=== PATIENT | female | born 1945 | race Caucasian/White ===

== ENCOUNTER 2017-11-15 21:54 | Emergency (ER) | payer MEDICARE, BC ==
[2017-11-15] MEDS ORDERED: Sodium Chloride 0.9% 1,000 ML IV SCH (22:15)
[2017-11-15] MEDS ORDERED: Metoclopramide 10 MG/2 ML SDV IVPUSH ONE (22:16)
--- NOTE | 2017-11-15 22:21 | EDM.PDOC ---
ED HPI GENERAL MEDICAL PROBLEM - General Chief Complaint: Lower Extremity Injury/Pain Stated Complaint: BACK AND LEG PAIN RECENT SURG Time Seen by Provider: 11/15/17 22:15 Source of Information: Reports: Patient History Limitations: Reports: No Limitations - History of Present Illness INITIAL COMMENTS - FREE TEXT/NARRATIVE: 72-year-old female presents to the ED with severe right lower extremity pain constant burning sharp and lancinating suggestive of neuropathic pain. Of note she is 8 days post repeat lumbar spine surgery. From what I can ascertain from her history she has fusion procedure carried out as well as sponge artificial disc placement. This would be in her third lumbar spine surgery. She was doing well up until noon today when the pain came on suddenly and has gradually exacerbated as the day has gone on. Up until this time she was walking with the aid of a walker and doing quite well. No falls or injuries. Her back itself does not seem to hurt. States is the worst pain she is ever experienced. She was having pain in both lower extremities but prior to the surgery and improved after the surgery. Onset: Today Onset Date: 11/15/17 Onset Time: 18:00 Duration: Hour(s): Location: Reports: Lower Extremity, Right Quality: Reports: Ache (From posterior hip buttock area all the way down to her foot i.e. in L5 nerve root distribution.), Burning, Stabbing, Other Severity: Severe (Likely has radiculopathy pain.) Improves with: Reports: None ( 10 out of 10.) Worsens with: Reports: None Context: Reports: Other (8 days postop L-spine surgery with artificial disks placement and from the sounds of things fusion of the lumbar spine.). 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: Reports: Other (see below) (She's been taking 2 tablets of hydrocodone 5/3/25 milligrams every 4 hours since this time of surgery.) Right Leg Pain Score (Numeric/FACES): 10 - Related Data Allergies Allergy/AdvReac Type Severity Reaction Status Date / Time aspirin Allergy Other Verified 11/15/17 22:12 chocolate flavor Allergy Other Verified 11/15/17 22:12 nadolol Allergy Shortness Verified 11/15/17 22:12 of Breath simvastatin Allergy Muscle Verified 11/15/17 22:12 Aches Past Medical History Cardiovascular History: Reports: Hypertension Musculoskeletal History: Reports: Back Pain, Chronic (Has had 3 back surgeries due to radiculopathy and spinal stenosis), Osteoarthritis (. involving both knees she's had both knees replaced.) Social & Family History - Living Situation & Occupation Living situation: Reports: Occupation: Unemployed Review of Systems - Review of Systems Review Of Systems: See Below Constitutional: Denies: Fever, Weakness, Other Eyes: Reports: No Symptoms Ears: Reports: No Symptoms Nose: Reports: No Symptoms Mouth/Throat: Reports: No Symptoms Respiratory: Reports: No Symptoms Cardiovascular: Reports: No Symptoms GI/Abdominal: Reports: No Symptoms Genitourinary: Reports: No Symptoms Musculoskeletal: Reports: Back Pain (Chronic back pain. Postop 8 days of her third lumbar spine surgery. Apparently had spinal fusion as well as placement of sponge disks are artificial disc.) Skin: Reports: No Symptoms Neurological: Reports: Other (Early expressing severe painful right buttock to her right foot in the distribution of the L5 nerve root. This started suddenly at noon today suggesting acute nerve root irritation or compression.) Psychiatric: Reports: No Symptoms ED EXAM, GENERAL - Physical Exam Exam: See Below Exam Limited By: No Limitations General Appearance: Alert, Moderate Distress (She is in a lot of pain.) Eye Exam: Bilateral Eye: Normal Inspection Respiratory/Chest: No Respiratory Distress, Lungs Clear, Normal Breath Sounds, No Accessory Muscle Use, Respiratory Distress (Tachypnea Due to hyperventilating. 22/m with sats of 90% on room air.) Cardiovascular: Normal Peripheral Pulses, Regular Rate, Rhythm, No Gallop, No Murmur, No Rub Peripheral Pulses: 2+: Posterior Tibial (L), Posterior Tibial (R), Dorsalis Pedis (L), Dorsalis Pedis (R) GI/Abdominal: Normal Bowel Sounds, Non-Tender, No Organomegaly, No Abnormal Bruit. No: No Mass, Guarding, Rigid, Rebound, Tender Back Exam: Other (On palpation she does have pain around her surgical site. Severe pain on palpation along the posterior iliac crest on the right side and along the distribution of the SI joint.) Extremities: Normal Inspection, Normal Range of Motion, Other (she she has well- healed scars over both knees from total knee replacements. Is able to straight leg raiser and internal next regular rotate both hips. Straight leg raising was mildly positive at 60 on the right side.) Neurological: Alert, Oriented, CN II-XII Intact, Normal Cognition, Normal Gait, Normal Reflexes, No Motor/Sensory Deficits Psychiatric: Anxious, Other Skin Exam: Warm, Dry, Intact, Normal Color, No Rash Course - Vital Signs Last Recorded V/S: Last Vital Signs Temp 36.6 C 11/15/17 22:03 Pulse 95 11/15/17 22:03 Resp 22 H 11/15/17 22:03 BP 191/112 H 11/15/17 22:03 Pulse Ox 98 11/15/17 22:03 - Orders/Labs/Meds Orders: Active Orders 24 hr Category Date Time Status Lumbar Spine wo Cont [CT] Stat Exams 11/15/17 22:16 Taken VL Duplex Lwr Ext Veins Ltd Rt [US] Stat Exams 11/15/17 22:18 Taken Dextrose 5%-0.9% NaCl with KCl [D5 NS with 20 mEq KCl] Med 11/16/17 03:15 Active 1,000 ml IV ASDIRECTED Sodium Chloride 0.9% [Normal Saline] 1,000 ml Med 11/15/17 22:15 Active IV ASDIRECTED Medication Orders Sodium Chloride (Normal Saline) 1,000 mls @ 150 mls/hr IV ASDIRECTED CHAPARRITA Last Admin: 11/15/17 23:08 Dose: 150 mls/hr Potassium Chloride/Dextrose/Sod Cl (D5 Ns With 20 Meq Kcl) 1,000 mls @ 75 mls/ hr IV ASDIRECTED CHAPARRITA Last Admin: 11/16/17 03:15 Dose: 75 mls/hr Labs: Laboratory Tests 11/15/17 11/15/17 11/15/17 Range/Units 23:20 23:20 23:20 WBC 6.81 (3.98-10.04) K/mm3 RBC 2.91 L (3.98-5.22) M/mm3 Hgb 8.1 L (11.2-15.7) gm/L Hct 25.8 L (34.1-44.9) % MCV 88.7 (79.4-94.8) fl MCH 27.8 (25.6-32.2) pg MCHC 31.4 L (32.2-35.5) g/dl RDW Std Deviation 41.4 (36.4-46.3) fL Plt Count 429 H (182-369) K/mm3 MPV 8.3 L (9.4-12.3) fl Neutrophils % (Manual) 66 H (40-60) % Band Neutrophils % 0 (0-10) % Lymphocytes % (Manual) 21 (20-40) % Atypical Lymphs % 0 % Monocytes % (Manual) 9 (2-10) % Eosinophils % (Manual) 3 (0.7-5.8) % Basophils % (Manual) 1 (0.1-1.2) Toxic Granulation Few Platelet Estimate Increased Plt Morphology Comment See note Polychromasia Few Poikilocytosis 1+ slight RBC Morph Comment Not Reportable D-Dimer, Quantitative 8.05 H (0.19-0.50) mg/L Sodium 141 (136-145) mEq/L Potassium 3.6 (3.5-5.1) mEq/L Chloride 104 (98-107) mEq/L Carbon Dioxide 28 (21-32) mEq/L Anion Gap 12.6 (5-15) BUN 12 (7-18) mg/dL Creatinine 0.9 (0.55-1.02) mg/dL Est Cr Clr Drug Dosing 49.51 mL/min Estimated GFR (MDRD) > 60 (>60) mL/min BUN/Creatinine Ratio 13.3 L (14-18) Glucose 108 (83-115) mg/dL Calcium 8.8 (8.5-10.1) mg/dL Total Bilirubin 0.5 (0.2-1.0) mg/dL AST 19 (15-37) U/L ALT 20 (14-59) U/L Alkaline Phosphatase 125 H (46-116) U/L C-Reactive Protein 11.8 H* (<1.0) mg/dL Total Protein 6.3 L (6.4-8.2) g/dl Albumin 2.8 L (3.4-5.0) g/dl Globulin 3.5 gm/dL Albumin/Globulin Ratio 0.8 L (1-2) Meds: Medications Generic Name Dose Route Start Last Admin Trade Name Freq PRN Reason Stop Dose Admin Sodium Chloride 1,000 mls @ 150 mls/hr 11/15/17 22:15 11/15/17 23:08 Normal Saline IV 150 mls/hr ASDIRECTED CHAPARRITA Administration Potassium Chloride/Dextrose/Sod Cl 1,000 mls @ 75 mls/hr 11/16/17 03:15 11/16 03:15 D5 Ns With 20 Meq Kcl IV 75 mls/hr ASDIRECTED CHAPARRITA Administration Discontinued Medications Generic Name Dose Route Start Last Admin Trade Name Mikael PRN Reason Stop Dose Admin Hydromorphone HCl 1 mg 11/15/17 22:15 11/16/17 01:49 Dilaudid IVPUSH 11/15/17 22:16 0.5 mg ONETIME ONE Administration Hydromorphone HCl 0.5 mg 11/16/17 03:10 11/16/17 03:15 Dilaudid IVPUSH 11/16/17 03:11 0.5 mg ONETIME ONE Administration Hydromorphone HCl 0.5 mg 11/16/17 04:27 11/16/17 04:34 Dilaudid IVPUSH 11/16/17 04:28 0.5 mg ONETIME ONE Administration Hydromorphone HCl 0.5 mg 11/16/17 07:16 Dilaudid IVPUSH 11/16/17 07:17 ONETIME ONE Potassium Chloride/Dextrose/Sod Cl 1,000 mls @ 125 mls/hr 11/16/17 01:15 01:59 D5 Ns With 20 Meq Kcl IV 125 mls/hr ASDIRECTED CHAPARRITA Administration Lorazepam 1 mg 11/16/17 04:28 11/16/17 04:34 Ativan IVPUSH 11/16/17 04:29 1 mg ONETIME ONE Administration Metoclopramide HCl 10 mg 11/15/17 22:16 11/15/17 23:08 Reglan IVPUSH 11/15/17 22:17 10 mg ONETIME ONE Administration - Radiology Interpretation Free Text/Narrative:: 72-year-old female presents to the ED with acute onset of severe pain right leg in the L5 nerve root distribution at noon today. Pain is gradually intensified a point that it's intolerable. If this is in spite of taking hydrocodone 5/3/25 milligram tablets 2 tablets every 4 hours. Note she is 8 days postop L-spine surgery with what sounds like L-spine fusion and artificial disc placement. Her history suggest acute related radiculopathy in the right leg and she states she had pain in both legs prior to the surgery which disappeared after the surgery. Pain is worse than what she is ever experience in the past. No position is comfortable she is moaning and groaning in pain. There is also some concern of DVT but DVT would never hurt this bad. Pain appears to be neuropathic. Is on of her leg will be done to rule out a DVT because she is so close to recent surgery. CT of her lumbar spine is to be done without contrast. Routine labs. IV will be normal saline at 150 mils per hour. Given Dilaudid 1 mg IV with Reglan 10 mg IV for acute pain and nausea relief. - Re-Assessments/Exams Free Text/Narrative Re-Assessment/Exam: 11/15/2329: Labs are back revealing a white count of 6.81. Hemoglobin is low at 8.1. Hematocrit is 25.8. MCV is normal at 88.7. Platelet count is elevated at 429,000. Differential shows 66% neutrophils with no bands. D-dimer was 8.05. Sodium 141 with potassium of 3.6. Chloride 104 bicarbonate 28. And a gap is 12.6. BUN was 12. Creatinine is 0.9. GFR is greater than 60. Glucose 108. Calcium 8.8. Total bilirubin 0.5. Liver function otherwise normal other than slightly elevated alk phosphatase at 125. C-reactive protein is elevated at 11.8. Total protein is slightly low at 6.3 as is the albumin fraction at 2.8. Doppler ultrasound of her right lower extremity reveals no evidence of DVT. This is in spite of an elevated d-dimer at 8.3. This is still up because of her recent surgery. CT scan of the lumbar spine reveals no acute bony fracture dislocation. She is status post lumbar fusion posteriorly from L1-S1. Prosthetic disc noted at L1-L2 and at L3-L4, L4-5 and L5-S1. Soft tissue density filling the spinal canal at L4-5 and at L5-S1. This was most likely postsurgical edema since the patient is had recent surgery to this area. Recurrent or residual disc herniation at this level cannot be totally ruled out of course MRI with gadolinium enhancement would be the only way to sort this out. Soft tissues otherwise appear unremarkable. Incidental note is made of multiple gallstones in the gallbladder. She is status post bilateral laminectomy with no evidence of a large postoperative hematoma. 11/16/17 00:[address] check in Dr[address] Yung, neurosurgeon who did the initial procedure is no longer manager stone. Since she is pain-free I will keep her in the ER overnight and try and discuss it with on-call neurosurgeon first thing in the morning about whether or not an MRI is required to see whether or not there is displacement of synthetic disc compressing the L5 nerve root. Also get a handle on her pain as at present she is pain-free after only 0.5 mg of Dilaudid IV. Cast with the family and the will come back at 0700 hrs. in the morning. 11/16/17 01:11 Second liter of IV will be D5 with 20 mg of KCl per liter to run at 125 mils an hour overnight. At present she reports that her pain is 0. This is only after 0.5 mg of Dilaudid IV. 11/16/17 03:10 patient is voiding almost every hour and a half. Will therefore return IV down to 75 mils an hour. It's hurting quite a bit to walk and to get in and out of bed. She's not able to sleep at this time due to pain. Will repeat Dilaudid 0.5 mg IV for pain relief. 11/16/17 04:28 patient once again is up to the bathroom. She is writhing in pain once again due to severe pain in right buttock radiate all the way down to her foot in the L5 nerve root distribution. It is aggravated by movement and particularly by standing or walking to the bathroom. She is on Valium 5 mg every 6 hours postoperatively. I therefore will give her Ativan 1 mg IV now and repeat Dilaudid 0.5 mg IV for pain relief. 11/16/17 06:35: Spoke with Dr Floyd -on-call neurosurgeon at [facility] and she felt that hardware was in the appropriate position and no evidence on CT scan of slipped disc that would compromise the L5 nerve root on the right side. Therefore the cause of her acute neuropathic pain is unclear at this time. She has been accepted to be transferred to that facility by Dr. Oliva--hospitalist. 11/16/17 07:20: Patient is willing to go with her in private vehicle to that facility which would be required as we only have one ambulance and they will be taking the patient to [place]. I will give her another dose of Dilaudid 0.5 mg IV prior to transport. Her saline lock will be left in place. Departure - Departure Time of Disposition: 07:29 Disposition: Home, Self-Care 01 Condition: Fair Clinical Impression: Pain in lower extremity due to sciatica - Discharge Information *PRESCRIPTION DRUG MONITORING PROGRAM REVIEWED*: Not Applicable *COPY OF PRESCRIPTION DRUG MONITORING REPORT IN PATIENT PATTIE: Not Applicable Referrals: PCP,Not In Area [Primary Care Provider] - Forms: ED Department Discharge Additional Instructions: travel to [facility] in [facility] for admission to the hospital for pain management. - My Orders Last 24 Hours: My Active Orders 11/15/17 22:15 Sodium Chloride 0.9% [Normal Saline] 1,000 ml IV ASDIRECTED 11/15/17 22:16 Lumbar Spine wo Cont [CT] Stat 11/15/17 22:18 VL Duplex Lwr Ext Veins Ltd Rt [US] Stat 11/16/17 03:15 Dextrose 5%-0.9% NaCl with KCl [D5 NS with 20 mEq KCl] 1,000 ml IV ASDIRECTED - Assessment/Plan Last 24 Hours: My Active Orders 11/15/17 22:15 Sodium Chloride 0.9% [Normal Saline] 1,000 ml IV ASDIRECTED 11/15/17 22:16 Lumbar Spine wo Cont [CT] Stat 11/15/17 22:18 VL Duplex Lwr Ext Veins Ltd Rt [US] Stat 11/16/17 03:15 Dextrose 5%-0.9% NaCl with KCl [D5 NS with 20 mEq KCl] 1,000 ml IV ASDIRECTED
[2017-11-15] MEDS: HYDROmorphone 0.5 MG/0.5 ML SYRINGE IVPUSH ONE (23:07)
[2017-11-16] MEDS ORDERED: Dextrose 5%-0.9% NaCl with KCl 1,000 ML IV SCH ×2 (01:15→03:15)
[2017-11-16] MEDS: HYDROmorphone 0.5 MG/0.5 ML SYRINGE IVPUSH ONE (01:49)
[2017-11-16] MEDS ORDERED: HYDROmorphone 0.5 MG/0.5 ML SYRINGE IVPUSH ONE ×3 (03:10→07:16)
[2017-11-16] MEDS ORDERED: LORazepam 2 MG/ML SDV IVPUSH ONE (04:28)
--- NOTE | 2017-11-16 18:25 | US ---
Right lower extremity deep venous ultrasound: Duplex and color flow imaging was obtained of the right common femoral, proximal greater saphenous, superficial femoral, popliteal, posterior tibial and peroneal veins. Left common femoral vein was also evaluated. Findings: Normal phasic flow, augmentation and compression are seen. Impression: 1. No evidence of deep venous thrombosis within the right lower extremity or within the left common femoral vein. Diagnostic code #1 I agree with preliminary report issued by [facility] ([facility] report finalized on 11/16/17, 12:46 AM Central Time)
--- NOTE | 2017-11-16 18:25 | CT ---
CT lumbar spine Technique: Multiple axial sections were obtained from the mid T-11 level inferiorly to the L5-S1 disc. Reconstructed coronal and sagittal images were obtained. Comparison: No prior lumbar spine imaging is available. Findings: T11-12: Minimal circumferential disc bulge is seen. Posterior disc maintains a concave margin. Severe degenerative apophyseal change is seen. No central canal stenosis is seen. Neural foramina appear patent. T12-L1: Slight circumferential disc bulge is seen. Posterior disc maintains a concave margin. Severe degenerative apophyseal change is noted. No central canal stenosis or neural foraminal stenosis is seen. L1-L2: Circumferential disc bulge is seen. Posterior disc maintains a concave margin. Intervertebral disc fixation is seen. Transpedicle screws are seen above and below this level. No central canal stenosis is seen. Neural foramina are patent. L2-L3: Intervertebral disc fixation is seen. Posterior spurring is noted. Circumferential disc bulge is present. Left sided mini laminectomy is noted. No central canal stenosis or bony neural foraminal stenosis is seen. Transpedicle screws noted above and below this level. L3-L4: Intervertebral disc fixation is seen. Posterior laminectomy is noted. Circumferential disc bulge is seen. No bony central or bony neural foraminal stenosis is seen. Transpedicle screws are seen above and below this level. L4-L5: Disc space is obliterated. Intervertebral disc fixation is noted. Posterior laminectomy is seen. Posterolateral spurring is seen into the neural foramina. Neural foramina show no definite bony stenosis. Transpedicle screws are seen above and below this level. L5-S1: Severe disc space narrowing noted with disc fixation. Posterior spurring is seen. No central canal stenosis is seen. No bony neural foraminal stenosis is seen. Transpedicle screws are seen above and below this level. Calcified gallstones partially seen within the gallbladder. Aorta shows atherosclerotic calcification. Impression: 1. Extensive surgery involving L1-L2 through L5-S1. 2. Other degenerative change as noted above. No bony central or bony neural foraminal stenosis is seen. Difficult to exclude soft tissue encroachment upon the neural foramina or central canal at multiple levels on this CT exam. If clinically indicated, MRI with gadolinium would be helpful to further evaluate. Diagnostic code #3 I agree with preliminary report issued by [facility] ([facility] report finalized on 11/16/17, 12:55 AM Central Time)
== END 2017-11-16 07:37 ==
LOC: JD.ED 21:54
DX: M54.41 Lumbago with sciatica, right side (principal); I10 Essential (primary) hypertension; Z88.6 Allergy status to analgesic agent; Z88.8 Allergy status to other drugs, medicaments and biological substances
CPT/HCPCS: 36415; 72131; 80053; 85007; 85027; 85379; 86140; 93971; 96361; 96374; 96375; 96376; 99285; J1170; J2060; J2765; J3480; J7040; 99284

== ENCOUNTER 2023-09-07 08:48 | Emergency (ER) | payer MEDICARE, BC ==
[2023-09-07 09:55] LABS: CORONAVIRUS COVID-19 NAA NEGATIVE (NEGATIVE); INFLUENZA A NAA NEGATIVE (NEGATIVE); RESPIRATORY SYNCYTIAL VIR NAA NEGATIVE (NEGATIVE)
[2023-09-07] MEDS: Promethazine 25 MG Tab PO ONE (11:41)
[2023-09-07] MEDS: predniSONE 10 MG Tab PO ONE (11:41)
== END 2023-09-07 12:47 | disposition home or self-care (01) ==
LOC: JD.ED 08:48
DX: J01.90 Acute sinusitis, unspecified (principal); I10 Essential (primary) hypertension; E03.9 Hypothyroidism, unspecified; Z88.6 Allergy status to analgesic agent; Z88.8 Allergy status to other drugs, medicaments and biological substances; Z79.899 Other long term (current) drug therapy
CPT/HCPCS: 0241U; 99283; J7512; J8597